=== PATIENT | female | born 1995 | race Caucasian/White ===

== ENCOUNTER 2016-09-16 10:52 | Emergency (ER) | payer BC ==
[~2016-09-16] VITALS: Ht 160 cm; Wt 72.6 kg
[~2016-09-16 10:52] MED LIST: ACCUNEB SO1.25 MG/1; BUTALB-APAP-CA1 EACH PO; CELEXA 20 MG TA20 M1 PO; CLEOCIN HCL150 MG PO; DOXYCYCLINE150 MG PO; FLEXERIL PO; IBUPROFEN 600600 M1 PO; NORCO 5-325 TA1 EACH PO; TRAMADOL 50 MG50 MG PO; ZOFRAN ODT4 MG PO
[2016-09-16] MEDS ORDERED: FLEXERIL PO (10:58)
[2016-09-16] MEDS ORDERED: DICLOFENAC SOD50 M1 PO (10:59)
[2016-09-16] MEDS ORDERED: IBUPROFEN 600600 M1 PO (12:23)
== END 2016-09-16 12:46 | disposition home or self-care (01) ==
LOC: ER 10:52
DX: M25.562 Pain in left knee (principal); F41.9 Anxiety disorder, unspecified; F32.9 Major depressive disorder, single episode, unspecified; F17.200 Nicotine dependence, unspecified, uncomplicated; F10.99 Alcohol use, unspecified with unspecified alcohol-induced disorder; F15.90 Other stimulant use, unspecified, uncomplicated; Z98.890 Other specified postprocedural states; Z88.1 Allergy status to other antibiotic agents; Z88.6 Allergy status to analgesic agent

== ENCOUNTER 2016-10-19 21:37 | Emergency (ER) | payer BC ==
[~2016-10-19] VITALS: Ht 157.5 cm; Wt 72.6 kg
[~2016-10-19 21:37] MED LIST changes: +DICLOFENAC SOD50 M1 PO
[2016-10-19] MEDS ORDERED: ULTRAM 50MG TAB50 MG PO (23:51)
[2016-10-19] MEDS ORDERED: VALIUM5 MG PO (23:51)
[2016-10-19] MEDS ORDERED: MOBIC15 MG PO (23:51)
== END 2016-10-20 00:17 | disposition home or self-care (01) ==
LOC: ER 21:37
DX: M54.32 Sciatica, left side (principal); F41.9 Anxiety disorder, unspecified; F32.9 Major depressive disorder, single episode, unspecified; F17.210 Nicotine dependence, cigarettes, uncomplicated; F10.99 Alcohol use, unspecified with unspecified alcohol-induced disorder; Z98.890 Other specified postprocedural states; Z88.1 Allergy status to other antibiotic agents; Z88.6 Allergy status to analgesic agent

== ENCOUNTER 2018-01-02 18:55 | Emergency (ER) | payer BC ==
[~2018-01-02] VITALS: Ht 157.5 cm; Wt 59.0 kg
[~2018-01-02 18:55] MED LIST changes: +CYCLOBENZAPRINE5 MG PO; +MOBIC15 MG PO; +ULTRAM 50MG TAB50 MG PO; +VALIUM5 MG PO
[2018-01-02] MEDS ORDERED: IBUPROFEN 800800 M1 PO (19:48)
[2018-01-02 20:13] VITALS: BP 110/78
== END 2018-01-02 20:16 | disposition home or self-care (01) ==
LOC: ER 18:55
DX: S63.621A Sprain of interphalangeal joint of right thumb, initial encounter (principal); W22.8XXA Striking against or struck by other objects, initial encounter; Y93.89 Activity, other specified; Y92.89 Other specified places as the place of occurrence of the external cause; Y99.8 Other external cause status; F41.9 Anxiety disorder, unspecified; F32.9 Major depressive disorder, single episode, unspecified; F17.210 Nicotine dependence, cigarettes, uncomplicated; Z88.1 Allergy status to other antibiotic agents; Z88.8 Allergy status to other drugs, medicaments and biological substances